=== PATIENT | female | born 1980 | race Caucasian/White ===

== ENCOUNTER 2017-01-07 18:39 | Emergency (ER) | payer MEDICAID ==
[~2017-01-07] VITALS: Ht 172.7 cm; Wt 72.0 kg
[2017-01-07 19:30] VITALS: Ht 172.7 cm; Wt 72.0 kg
[2017-01-07] MEDS ORDERED: IBUP-1542 PO (19:58)
[2017-01-07] MEDS ORDERED: AMOX1TAB10 PO (19:58)
[2017-01-07] MEDS ORDERED: ACETAMINOPHEN 325 MG TAB PO ONE (20:00)
[2017-01-07] MEDS ORDERED: AMOXICILLIN/CLAV 875 MG TAB PO ONE (20:00)
--- NOTE | 2017-01-07 20:44 | ERD ---
ER Documentation Chief Complaint Date/Time DATE: 01/07/17 TIME: 20:42 Chief Complaint Sore throat and fever. HPI Patient is a 36-year-old female with lupus and Crohn's disease who presents with sore throat. The patient has had a fever as well. She has had nausea and abdominal pain. The sore throat started yesterday. She tried oil of oregano and silver. She has no voice changes. Upon review of old medical records this is the patient's first visit to the emergency department. She does not currently have a primary doctor. ROS All systems reviewed and are negative except as per history of present illness. Medications Home Meds Active Scripts Ibuprofen* (Motrin*) 600 Mg Tab, 600 MG PO Q6H Y for PAIN AND OR ELEVATED TEMP, #30 TAB Prov:CARLOS PUGH MD 01/07/17 Amoxicillin/Potassium Clav (Amox-Clav 875-125 mg Tablet) 875-125 mg Tab, 1 TAB PO BID for 10 Days, #20 TAB Prov:CARLOS PUGH MD 01/07/17 Allergies Allergies: Coded Allergies: milk (Verified Allergy, Intermediate, 01/07/17) PMhx/Soc Positive for lupus and Crohn's disease History of Surgery: No Anesthesia Reaction: No Hx Neurological Disorder: No Hx Respiratory Disorders: No Hx Cardiac Disorders: No Hx Psychiatric Problems: No Hx Miscellaneous Medical Probl: No Hx Alcohol Use: No Hx Substance Use: No Hx Tobacco Use: No Smoking Status: Unknown if ever smoked FmHx Family History: diabetes Physical Exam Vitals Vital Signs Date Time Temp Pulse Resp B/P Pulse Ox O2 Delivery O2 Flow Rate FiO2 01/07/17 19:30 104.5 117 20 109/69 100 Physical Exam Const: Mild distress Head: Atraumatic Eyes: Normal Conjunctiva ENT: Erythema to the tonsils with pus on tonsils bilaterally, no deviation of the uvula, no stridor over the neck Neck: Full range of motion..~ No meningismus. Resp: Clear to auscultation bilaterally Cardio: Regular rate and rhythm, no murmurs Abd: Soft, non tender, non distended. Normal bowel sounds Skin: No petechiae or rashes Back: No midline or flank tenderness Ext: No cyanosis, or edema Neur: Awake and alert Psych: Normal Mood and Affect Results 24 hrs Current Medications Medications (Trade) Dose Ordered Sig/Zi Route PRN Reason Start Time Stop Time Status Last Admin Dose Admin Amoxicillin/ Clavulanate Potassium (Augmentin) 875 mg ONCE ONCE PO 01/07/17 20:00 01/07/17 20:01 DC 01/07/17 20:11 Acetaminophen (Tylenol Tab) 650 mg ONCE ONCE PO 01/07/17 20:00 01/07/17 20:01 DC 01/07/17 20:05 Procedures/MDM Patient is a 36-year-old female presents with what appears to be an acute pharyngitis. I believe this is likely bacterial. The patient will be treated with Augmentin for a 10 day course. The patient was given Tylenol for fever in the emergency department. She has no abdominal pain on exam and I believe outpatient management is appropriate at this time. I doubt peritonsillar abscess, retropharyngeal abscess, or epiglottitis. Departure Diagnosis: Primary Impression: Pharyngitis Pharyngitis/tonsillitis etiology: unspecified etiology Qualified Code: J02.9 - Pharyngitis, unspecified etiology Additional Impression: Sore throat Condition: Fair Patient Instructions: Pharyngitis, Strep (Presumed) Referrals: [facility] YOU HAVE RECEIVED A MEDICAL SCREENING EXAM AND THE RESULTS INDICATE THAT YOU DO NOT HAVE A CONDITION THAT REQUIRES URGENT TREATMENT IN THE EMERGENCY DEPARTMENT. FURTHER EVALUATION AND TREATMENT OF YOUR CONDITION CAN WAIT UNTIL YOU ARE SEEN IN YOUR DOCTORS OFFICE WITHIN THE NEXT 1-2 DAYS. IT IS YOUR RESPONSIBILITY TO MAKE AN APPOINTMENT FOR FOLOW-UP CARE. IF YOU HAVE A PRIMARY DOCTOR --you should call your primary doctor and schedule an appointment IF YOU DO NOT HAVE A PRIMARY DOCTOR YOU CAN CALL OUR PHYSICIAN REFERRAL HOTLINE AT IF YOU CAN NOT AFFORD TO SEE A PHYSICIAN YOU CAN CHOSE FROM THE FOLLOWING [facility] CL[facility]ICS [facility] [address] [facility] [address] [facility] [facility] [address] [facility] [facility] [address] [facility]. [facility] [address] [facility]. [facility]. [address] Additional Instructions: Call your primary care doctor TOMORROW for an appointment during the next 1-2 days.See the doctor sooner or return here if your condition worsens before your appointment time. CARLOS PUGH MD Jan 07, 2017 20:43
== END 2017-01-07 20:16 | disposition home or self-care (01) ==
LOC: E/R 18:39
DX: J02.9 Acute pharyngitis, unspecified (principal)
CPT/HCPCS: Z7502; Z7610; 99283